=== PATIENT | male | born 1980 | race African-American/Black ===

== ENCOUNTER 2019-02-19 19:45 | Emergency (ER) | payer MEDICAID ==
[~2019-02-19] VITALS: Ht 190.5 cm; Wt 81.6 kg
[2019-02-19 19:50] VITALS: BP 136/72
--- NOTE | 2019-02-20 00:47 | NUR ---
PT GIVEN CLEAN SOCKS. GIVEN FOOD AND JUICE. GIVEN ALL REFERRALS FOR HOMELESS SHELTERS. SIGNED WAIVER. WRISTBAND TAKEN AWAY. PT AMBULATORY. VSS. AOX4.
== END 2019-02-20 00:48 | disposition home or self-care (01) ==
LOC: ER 19:53
DX: F19.10 Other psychoactive substance abuse, uncomplicated (principal); F15.90 Other stimulant use, unspecified, uncomplicated; F12.10 Cannabis abuse, uncomplicated; I10 Essential (primary) hypertension; Z60.2 Problems related to living alone

== ENCOUNTER 2021-06-15 14:37 | Emergency (ER) | payer MEDICAID ==
[~2021-06-15] VITALS: Ht 190.5 cm; Wt 83.9 kg
--- NOTE | 2021-06-15 15:16 | NUR ---
Tushar norton in ED - 06/15/21 at 1703 by VIDHI GAMEPLAY PROGRAMMER AT PT'S BEDSIDE
[2021-06-15] MEDS ORDERED: LIDOCAINE HCL/MPF 1% 30 ML VIAL IJ ONE (15:52)
--- NOTE | 2021-06-15 16:01 | NUR ---
ROSS CARRIER DRIVER AT BEDSIDE FOR FLUSHING OF R HAND LACERATION
--- NOTE | 2021-06-15 16:16 | NUR ---
ROSEANNA MILLER AT BEDSIDE
[2021-06-15] MEDS ORDERED: LIDOCAINE HCL/PF 1% 30 ML SDV IJ ONE (17:30)
--- NOTE | 2021-06-15 19:00 | NUR ---
SLIP COVER ESTIMATOR AT BEDSIDE FOR WOUND CARE.
[2021-06-15] MEDS ORDERED: NEOM1OIN15 TP (19:20)
[2021-06-15 19:25] VITALS: BP 122/69
== END 2021-06-15 19:42 | disposition home or self-care (01) ==
LOC: ER 14:45
DX: S61.210A Laceration without foreign body of right index finger without damage to nail, initial encounter (principal); S61.212A Laceration without foreign body of right middle finger without damage to nail, initial encounter; Z60.2 Problems related to living alone; W25.XXXA Contact with sharp glass, initial encounter; Y93.89 Activity, other specified; Y92.89 Other specified places as the place of occurrence of the external cause; Y99.8 Other external cause status
CPT/HCPCS: 12004; 99283; A6403 ×3; J3490